=== PATIENT | female | born 1970 | race Caucasian/White ===

== ENCOUNTER 2021-07-11 11:26 | Emergency (ER) | payer OTHER ==
[~2021-07-11] VITALS: Ht 167.6 cm; Wt 70.8 kg
[2021-07-11] MEDS ORDERED: TAMS0.4C PO (17:40)
== END 2021-07-11 18:05 | disposition home or self-care (01) ==
LOC: ER 11:26
DX: A90 Dengue fever [classical dengue] (principal); N20.0 Calculus of kidney